=== PATIENT | female | born 1980 | race Caucasian/White ===

== ENCOUNTER 2017-03-15 09:30 | Emergency (ER) | payer OTHER ==
[2017-03-15 11:32] LABS: BASOPHIL% 0.3 % (0-2.5); EOSINOPHIL% 0.5 % (0.0-7.0); HEMATOCRIT 28.4 % (35.0-45.0); HEMOGLOBIN 8.8 gm/dL (12.0-16.0); LYMPHOCYTE# 1.7 X10e3 (1.0-3.5); LYMPHOCYTE% 35.3 % (17.0-45.0); MEAN CELL VOLUME 71.4 FL (83-96); MEAN CORPUSCULAR HEMOGLOBIN 22.2 PG (28-34); MEAN CORPUSCULAR HGB CONC 31.1 g/dL (30-36); MEAN PLATELET VOLUME 9.3 FL (6.5-11.5); MONOCYTE# 0.3 X10e3 (0-1.0); MONOCYTE% 5.5 % (3.0-12.0); NEUTROPHIL# 2.9 X10e3 (1.5-7.1); NEUTROPHIL% 58.4 % (40-75); PLATELET COUNT 187 X10e3 (140-420); RED BLOOD COUNT 3.98 X10e (3.90-5.30); RED CELL DISTRIBUTION WIDTH 17.5 % (11.0-15.5)
[2017-03-15 11:38] LABS: URINE SOURCE CLEAN CATCH
[2017-03-15 11:40] LABS: DIFF IND NO
[2017-03-15 11:46] LABS: URINE APPEARANCE HAZY; URINE BLOOD NEG (NEG); URINE COLOR AMBER; URINE GLUCOSE NORM (NORM); URINE KETONE NEG (NEG); URINE LEUKOCYTE ESTERASE 1+ (NEG); URINE NITRATE NEG (NEG); URINE PROTEIN 1+ (NEG); URINE UROBILINOGEN NORM (NORM)
[2017-03-15 11:51] LABS: URINE BILIRUBIN NEG (NEG)
[2017-03-15 11:52] LABS: ALBUMIN SERUM 3.8 g/dL (3.5-5.0); BILIRUBIN,TOTAL 0.5 mg/dL (0.2-2.0); CALCIUM SERUM 8.5 mg/dL (8.4-10.2); CREATININE SERUM 0.5 mg/dL (0.6-1.4); GLOM FILT RATE Estimated 122.8 mL/min (>60); POTASSIUM 3.7 mmol/L (3.5-5.1); PROTEIN TOTAL SERUM 7.6 g/dL (6.0-8.3)
[2017-03-15 12:23] LABS: CULTURE INDICATED? NO; URBCS1 AUWI NEG /[HPF] (0-2); URINE BACTERIA AUWI NEG (NEGATIVE)
[2017-03-15 12:24] LABS: URINE MUCUS PRESENT; URINE SQUAMOUS EPITHELIAL CELL MODERATE /[HPF]; URINE YEAST PRESENT
== END 2017-03-15 13:44 | disposition home or self-care (01) ==
LOC: CFTX 09:30 → CED 09:30 → CFTX 10:59
PROVIDERS: Nurse Practitioner
DX: D64.9 Anemia, unspecified (principal); R11.2 Nausea with vomiting, unspecified; I10 Essential (primary) hypertension
CPT/HCPCS: 80053; 81003; 82947; 84703; 85025; 93005; 99283